=== PATIENT | female | born 1995 | race Caucasian/White ===

== ENCOUNTER 2019-12-28 14:12 | Outpatient (CLI) | payer OTHER ==
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
== END 2019-12-28 14:13 | disposition home or self-care (01) ==
LOC: DI.N 14:12
PROVIDERS: ATTEND Physician Assistant Medical
DX: M25.532 Pain in left wrist (principal); S69.92XA Unspecified injury of left wrist, hand and finger(s), initial encounter

== ENCOUNTER 2019-12-31 12:02 | Outpatient (CLI) | payer OTHER ==
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
== END 2019-12-31 12:03 | disposition home or self-care (01) ==
LOC: DI 12:02
PROVIDERS: ATTEND Physician Assistant Medical
DX: M25.532 Pain in left wrist (principal); T14.90XA Injury, unspecified, initial encounter

== ENCOUNTER 2020-04-28 16:57 | Outpatient (CLI) | payer OTHER | END 2020-04-28 16:58 | disposition home or self-care (01) | LOC: COV 16:57 | PROVIDERS: ATTEND Family Medicine | DX: R05 Cough (principal); Z20.828 Contact with and (suspected) exposure to other viral communicable diseases; R09.81 Nasal congestion; J02.9 Acute pharyngitis, unspecified; R43.9 Unspecified disturbances of smell and taste; R53.83 Other fatigue ==

== ENCOUNTER 2020-08-16 12:38 | Outpatient (CLI) | payer OTHER | END 2020-08-16 12:39 | disposition home or self-care (01) | LOC: COV 12:38 | PROVIDERS: ATTEND Nurse Practitioner | DX: R05 Cough (principal); R06.02 Shortness of breath; R53.83 Other fatigue; R68.83 Chills (without fever); R07.0 Pain in throat; R19.7 Diarrhea, unspecified; R43.8 Other disturbances of smell and taste; R09.81 Nasal congestion; J34.89 Other specified disorders of nose and nasal sinuses; Z20.822 Contact with and (suspected) exposure to COVID-19 ==